=== PATIENT | female | born 1980 | race Two or more races ===

== ENCOUNTER 2022-02-10 13:26 | Inpatient (IN) | payer SELFPAY ==
[2022-02-10] MEDS ORDERED: Water For Irrigation,Sterile 1,000 ML Container IRR PRN (17:59)
[2022-02-10] MEDS ORDERED: Butorphanol 1 MG/ML SDV IVPUSH PRN (17:59)
[2022-02-10] MEDS ORDERED: Carboprost Tromethamine 250 MCG/1 ML Amp IM PRN (17:59)
[2022-02-10] MEDS ORDERED: Sodium Chloride 0.9% 2.5 ML Syringe FLUSH PRN (17:59)
[2022-02-10] MEDS ORDERED: Lidocaine 1% 50 ML MDV INJECT PRN (17:59)
[2022-02-10] MEDS ORDERED: Ampicillin 2 GM in Sodium Chloride 0.9% 100 ML IV ONE (17:59)
[2022-02-10] MEDS ORDERED: Sodium Chloride 0.9% 20 ML SDV IV PRN (17:59)
[2022-02-10] MEDS ORDERED: Methylergonovine 0.2 MG/1 ML Amp IM PRN (17:59)
[2022-02-10] MEDS ORDERED: Ondansetron 4 MG/2 ML SDV IVPUSH PRN (17:59)
[2022-02-10] MEDS ORDERED: Sodium Chloride 0.9% 10 ML Syringe FLUSH PRN (17:59)
[2022-02-10] MEDS ORDERED: Tranexamic Acid 1,000 MG in Sodium Chloride 0.9% 100 ML IV PRN (17:59)
[2022-02-10] MEDS ORDERED: Misoprostol 200 MCG Tab PO PRN (17:59)
[2022-02-10] MEDS ORDERED: Oxytocin/0.9 % Sodium Chloride 30 UNIT/500 ML BAG IV SCH ×2 (18:00)
[2022-02-10] MEDS: Lactated Ringers 1,000 ML IV SCH ×2 (18:19→22:13)
[2022-02-10] MEDS ORDERED: Ampicillin 1 GM in Sodium Chloride 0.9% 50 ML IV SCH (22:00)
[2022-02-10] MEDS ORDERED: Terbutaline 1 MG/ML SDV SUBCUT PRN (22:00)
[2022-02-10] MEDS ORDERED: Ropivacaine/PF 400 MG/200 ML PCA ONE (22:50)
[2022-02-10] MEDS ORDERED: Ropivacaine 0.2% PF 2 MG/ML 20 ML SDV ONE (22:50)
[2022-02-10] MEDS ORDERED: ePHEDrine 50 MG/ML SDV IVPUSH PRN (23:16)
[2022-02-10] MEDS ORDERED: Phenylephrine HCl In 0.9% NaCl 1 MG/10 ML Vial IVPUSH SCH (23:30)
[2022-02-10] MEDS ORDERED: Ropivacaine HCl/PF 400 MG in Premix Bag 1 BAG EPIDUR SCH (23:30)
[2022-02-11] MEDS ORDERED: Acetaminophen 500 MG Tab PO PRN (00:50)
[2022-02-11] MEDS ORDERED: Bisacodyl 10 MG Supp RECTAL PRN (00:50)
[2022-02-11] MEDS ORDERED: Ibuprofen 400 MG Tab PO PRN (00:50)
[2022-02-11] MEDS ORDERED: Benzocaine/Menthol 20%-0.5% Spray 78 GM Cannister TOP PRN (00:50)
[2022-02-11] MEDS ORDERED: Witch Hazel Medicated Pads 40/Jar TOP PRN (00:50)
[2022-02-11] MEDS ORDERED: Lanolin 100% Cream 7 GM Tube TOP PRN (00:50)
[2022-02-11] MEDS: Acetaminophen 500 MG Tab PO PRN ×2 (08:04→20:48)
[2022-02-11] MEDS: Ibuprofen 800 MG Tab PO PRN ×2 (08:05→20:49)
[2022-02-11] MEDS: Docusate Sodium 100 MG Cap PO PRN (08:06)
[2022-02-12] MEDS: Acetaminophen 500 MG Tab PO PRN (10:12)
[2022-02-12] MEDS: Docusate Sodium 100 MG Cap PO PRN (10:12)
[2022-02-12] MEDS: Ibuprofen 800 MG Tab PO PRN (10:13)
== END 2022-02-12 15:45 | disposition home or self-care (01) | DRG 807 ==
LOC: MW.OBCHECK 13:26 → EDBD 13:26 → MW.OB 13:29 → MW.OBCHECK 17:58 → MW.OB 17:59 → OBSVTOIN 02-11 00:35 → MW.OB 02-11 02:34
PROVIDERS: ADMIT Obstetrics & Gynecology Obstetrics; ATTEND Obstetrics & Gynecology Obstetrics
PROC: 10E0XZZ Delivery of Products of Conception, External Approach (ICD-10-PCS; principal; 2022-02-11)
PROC: 10907ZC Drainage of Amniotic Fluid, Therapeutic from Products of Conception, Via Natural or Artificial Opening (ICD-10-PCS; 2022-02-11)
PROC: 3E0R3BZ Introduction of Anesthetic Agent into Spinal Canal, Percutaneous Approach (ICD-10-PCS; 2022-02-11)
PROC: 00HU33Z Insertion of Infusion Device into Spinal Canal, Percutaneous Approach (ICD-10-PCS; 2022-02-11)
DX: O99.824 Streptococcus B carrier state complicating childbirth (principal); Z37.0 Single live birth; Z20.822 Contact with and (suspected) exposure to COVID-19; O67.9 Intrapartum hemorrhage, unspecified; Z3A.39 39 weeks gestation of pregnancy; O77.0 Labor and delivery complicated by meconium in amniotic fluid
CPT/HCPCS: 36415; 51702; 59025; 59409; 85014; 85018; 85027; 86592; 86850; 86900; 86901; A9270-GY; J0290; J2590; J2795; J7120; U0002

== ENCOUNTER 2025-04-18 07:45 | Inpatient (IN) | payer MEDICAID ==
[2025-04-18] MEDS ORDERED: Butorphanol 1 MG/ML SDV IVPUSH PRN (07:48)
[2025-04-18] MEDS ORDERED: Sodium Chloride 0.9% 2.5 ML Syringe FLUSH PRN (07:48)
[2025-04-18] MEDS ORDERED: Terbutaline 1 MG/ML SDV SUBCUT PRN (07:48)
[2025-04-18] MEDS ORDERED: Carboprost Tromethamine 250 MCG/1 mL Vial IM PRN (07:48)
[2025-04-18] MEDS ORDERED: Sodium Chloride 0.9% 10 ML Syringe FLUSH PRN (07:48)
[2025-04-18] MEDS ORDERED: Water For Irrigation,Sterile 1,000 ML Container IRR PRN (07:48)
[2025-04-18] MEDS ORDERED: Ondansetron 4 MG/2 ML SDV IVPUSH PRN (07:48)
[2025-04-18] MEDS ORDERED: Nalbuphine 10 MG/1 ML Vial IVPUSH ONE (07:52)
[2025-04-18] MEDS: Lactated Ringers 1,000 ML IV SCH (08:00)
[2025-04-18] MEDS ORDERED: ePHEDrine 50 MG/ML SDV IVPUSH PRN (08:04)
[2025-04-18] MEDS ORDERED: dexmedeTOMIDine HCl 200 MCG/2 ML SDV EPIDUR SCH (08:15)
[2025-04-18 08:25] LABS: MEAN PLATELET VOLUME 12.3 fL (9.4-12.3); NRBC ABSOLUTE 0.00 K/uL (0.00-0.02); NRBC PERCENT 0.0 /100WBC (0.0-0.2); PLATELET COUNT,PLT 191 K/uL (150-400); RED BLOOD CELL COUNT 3.69 M/uL (4.10-5.30); WHITE BLOOD CELL COUNT,WBC 6.73 K/uL (3.9-11.3)
[2025-04-18] MEDS: Ropivacaine HCl/PF 400 MG in Premix Bag 1 BAG EPIDUR SCH (09:20)
[2025-04-18] MEDS ORDERED: Lanolin 100% Cream 7 GM Tube TOP PRN (10:21)
[2025-04-18] MEDS ORDERED: Benzocaine/Menthol 20%-0.5% Spray 78 GM Cannister TOP PRN (10:21)
[2025-04-18] MEDS ORDERED: Witch Hazel Medicated Pads 40/Jar TOP PRN (10:21)
[2025-04-18] MEDS: Oxytocin/0.9 % Sodium Chloride 30 UNIT/500 ML BAG IV SCH (12:54)
[2025-04-18 13:59] LABS: PH,UMBILICAL ARTERIAL 7.33 (7.18-7.38); PH,UMBILICAL VENOUS 7.39 (7.25-7.45)
[2025-04-19 05:58] LABS: MEAN PLATELET VOLUME 11.9 fL (9.4-12.3); NRBC ABSOLUTE 0.00 K/uL (0.00-0.02); NRBC PERCENT 0.0 /100WBC (0.0-0.2); PLATELET COUNT,PLT 157 K/uL (150-400); RED BLOOD CELL COUNT 2.92 M/uL (4.10-5.30); WHITE BLOOD CELL COUNT,WBC 8.55 K/uL (3.9-11.3)
[2025-04-19] MEDS: Prenatal Multivitamin with Calcium/Folic Acid/Iron Tab PO SCH (07:52)
== END 2025-04-19 12:00 | disposition home or self-care (01) | DRG 806 ==
LOC: MW.OBCHECK 07:45 → MW.OB 07:46 → MW.OBCHECK 13:02 → MW.OB 13:04 → OBSVTOIN 13:07 → MW.OB 16:31
PROVIDERS: ADMIT Obstetrics & Gynecology; ATTEND Obstetrics & Gynecology
PROC: 10E0XZZ Delivery of Products of Conception, External Approach (ICD-10-PCS; principal; 2025-04-18)
PROC: 10907ZC Drainage of Amniotic Fluid, Therapeutic from Products of Conception, Via Natural or Artificial Opening (ICD-10-PCS; 2025-04-18)
PROC: 3E0R3BZ Introduction of Anesthetic Agent into Spinal Canal, Percutaneous Approach (ICD-10-PCS; 2025-04-18)
DX: O99.824 Streptococcus B carrier state complicating childbirth (principal); D62 Acute posthemorrhagic anemia; Z37.0 Single live birth; O77.0 Labor and delivery complicated by meconium in amniotic fluid; O99.02 Anemia complicating childbirth; Z3A.39 39 weeks gestation of pregnancy; Z79.899 Other long term (current) drug therapy
CPT/HCPCS: 36415; 51702; 59020; 59025; 59409; 82803; 85027; 86592; 86850; 86900; 86901; A9270-GY; J0290; J2371; J2590; J2795; J7120